=== PATIENT | male | born 1995 | race Caucasian/White ===

== ENCOUNTER 2017-04-03 06:23 | Emergency (ER) | payer MEDICAID ==
[~2017-04-03] VITALS: Ht 177.8 cm; Wt 64.5 kg
[2017-04-03 06:29] VITALS: Ht 177.8 cm; Wt 64.5 kg
[2017-04-03] MEDS ORDERED: LIDOCAINE 2% (MDV) 20 ML INJ INJ ONE (07:00)
[2017-04-03] MEDS ORDERED: IBUP-1542 PO ×2 (07:23→07:25)
--- NOTE | 2017-04-03 07:50 | ERD ---
ER Documentation Chief Complaint Date/Time DATE: 04/03/17 TIME: 07:47 Chief Complaint right big toe engrown nail x2 days HPI 21-year-old male patient with no significant past medical history presents to the ED complaining of a right great toe ingrown toenail that started about 2 days ago. Reports that it hurts to walk on his right foot because the nail is impinging on his right toe. States that he try to remove it with tweezers and a screen cutter and trimmer. Describes pain as sharp and rates it a 5 out of 10. Denies any loss of sensation, loss of range of motion, weakness, numbness or tingling, fever, chills, nausea, vomiting. Denies any injuries or trauma. ROS All systems reviewed and are negative except as per history of present illness. Medications Home Meds Active Scripts Ibuprofen* (Motrin*) 600 Mg Tab, 600 MG PO Q6, #15 TAB Prov:SEGALREGGIE Sheldon PA-C 04/03/17 Allergies Allergies: Coded Allergies: No Known Allergy (Unverified , 04/03/17) PMhx/Soc History of Surgery: No Anesthesia Reaction: No Hx Neurological Disorder: No Hx Respiratory Disorders: No Hx Cardiac Disorders: No Hx Psychiatric Problems: No Hx Miscellaneous Medical Probl: No Hx Alcohol Use: No Hx Substance Use: No Hx Tobacco Use: No Smoking Status: Never smoker Physical Exam Vitals Vital Signs Date Time Temp Pulse Resp B/P Pulse Ox O2 Delivery O2 Flow Rate FiO2 04/03/17 06:29 97.0 50 20 101/64 100 Physical Exam Const: Qos-sdr-mlpcfxolf, well-nourished. In no acute distress. Head: Atraumatic, normocephalic Eyes: Normal Conjunctiva without injection ENT: Normal external ear, nose and mouth. Neck: Full range of motion. No meningismus. Resp: Clear to auscultation bilaterally. No wheezing, rhonchi, rales, or crackles. No accessory muscle use. No retractions. Cardio: Regular rate and rhythm, no murmurs Skin: No petechiae or rashes Back: No midline tenderness. No CVA tenderness. Ext: No cyanosis, or edema. Cap refill less than 2 seconds. Distal pulses intact bilaterally. Bilateral ingrown toenail. Right great toe ingrown toenail at the medial aspect with slight erythema noted. No purulent discharge. No bleeding noted. No fluctuance or induration. Full range of motion the IP and MTP joints bilaterally. Neur: Awake and alert. Normal gait and coordination. Muscle strength 5/5. Sensation intact bilaterally. Psych: Normal Mood and Affect Results 24 hrs Current Medications Medications (Trade) Dose Ordered Sig/Devi Route PRN Reason Start Time Stop Time Status Last Admin Dose Admin Lidocaine (Xylocaine 2% (Mdv) 20 ml) 20 ml ONCE ONCE INJ 04/03/17 07:00 04/03/17 07:01 DC Procedures/MDM This is a 21-year-old male patient with no significant past medical history presents to the ED complaining of a right ingrown toenail that has a sharp pain that started 2 days ago. Patient is afebrile and nontoxic-appearing. Patient has normal vital signs. Patient gave consent to perform a removal of the medial aspect of patient's ingrown toenail at this time. It was cleaned with Betadine. 5 cc 2% lidocaine was used to provide local anesthesia. 0.5 cm of the nail with the base was were removed without any difficulty or complications. No bleeding noted. No evidence of deep space infection. Patient's extremity symptoms have stabilized while they have been evaluated in the department and are appropriate for outpatient follow up. No evidence of fractures, dislocations, compartment syndrome, neurologic injury, vascular injury, open joint, open fracture, tendon laceration, septic arthritis, osteomyelitis, DVT, foreign body, or other emergent conditions. Discharge medications: Ibuprofen Follow up with primary care physician in 1-2 days for a referral to a ramp manager. Instructed patient to return to the ED sooner for any worsening symptoms. Patient's questions were answered. Patient understood and agreed with discharge plan. Patient discharged stable. Departure Diagnosis: Primary Impression: Ingrowing nail, right great toe Condition: Stable Patient Instructions: Understanding Ingrown Toenails, Ingrown Toenail, Excised Referrals: COMMUNITY CLINICS YOU HAVE RECEIVED A MEDICAL SCREENING EXAM AND THE RESULTS INDICATE THAT YOU DO NOT HAVE A CONDITION THAT REQUIRES URGENT TREATMENT IN THE EMERGENCY DEPARTMENT. FURTHER EVALUATION AND TREATMENT OF YOUR CONDITION CAN WAIT UNTIL YOU ARE SEEN IN YOUR DOCTORS OFFICE WITHIN THE NEXT 1-2 DAYS. IT IS YOUR RESPONSIBILITY TO MAKE AN APPOINTMENT FOR FOLOW-UP CARE. IF YOU HAVE A PRIMARY DOCTOR --you should call your primary doctor and schedule an appointment IF YOU DO NOT HAVE A PRIMARY DOCTOR YOU CAN CALL OUR PHYSICIAN REFERRAL HOTLINE AT IF YOU CAN NOT AFFORD TO SEE A PHYSICIAN YOU CAN CHOSE FROM THE FOLLOWING [facility] [address] [facility] [address] [facility] [address] [facility] [address] [facility] [address]. [facility] [address] [facility]. [facility] YOU HAVE RECEIVED A MEDICAL SCREENING EXAM AND THE RESULTS INDICATE THAT YOU DO NOT HAVE A CONDITION THAT REQUIRES URGENT TREATMENT IN THE EMERGENCY DEPARTMENT. FURTHER EVALUATION AND TREATMENT OF YOUR CONDITION CAN WAIT UNTIL YOU ARE SEEN IN YOUR DOCTORS OFFICE WITHIN THE NEXT 1-2 DAYS. IT IS YOUR RESPONSIBILITY TO MAKE AN APPOINTMENT FOR FOLOW-UP CARE. IF YOU HAVE A PRIMARY DOCTOR --you should call your primary doctor and schedule and appointment IF YOU DO NOT HAVE A PRIMARY DOCTOR YOU CAN CALL OUR PHYSICIAN REFERRAL HOTLINE AT . IF YOU CAN NOT AFFORD TO SEE A PHYSICIAN YOU CAN CHOSE FROM THE FOLLOWING [facility]: [facility] [address] [place] [address] [facility] [address] [place] [address] [facility] [address] [place] [address] [facility] Additional Instructions: Call your primary care doctor TOMORROW for an appointment during the next 1-2 days for a referral to see a ramp manager. See the doctor sooner or return here if your condition worsens before your appointment time. REGGIE SEGAL PA-C April 03, 2017 07:50
== END 2017-04-03 07:30 | disposition home or self-care (01) ==
LOC: FTE 06:23
DX: L60.0 Ingrowing nail (principal)
CPT/HCPCS: 11765; Z7610

== ENCOUNTER 2017-06-12 11:44 | Emergency (ER) | payer SELFPAY ==
[~2017-06-12] VITALS: Wt 89.0 kg
[~2017-06-12 11:44] MED LIST: IBUP-1542 PO
[2017-06-12 12:35] LABS: BASOPHILS % 0.4 % (0.0-2.0); EOSINOPHILS % 1.2 % (0.0-7.0); HEMATOCRIT 39.8 % (42.0-52.0); HEMOGLOBIN 13.8 g/dl (14.0-18.0); LYMPHOCYTES # 0.7 10^3/ul (0.8-2.9); MEAN CORPUSCULAR HEMOGLOBIN 30.5 pg (29.0-33.0); MEAN CORPUSCULAR HGB CONC 34.7 g/dl (32.0-37.0); MEAN CORPUSCULAR VOLUME 88.1 fl (82.0-101.0); MEAN PLATELET VOLUME 8.7 fl (7.4-10.4); MONOCYTE # 0.2 10^3/ul (0.3-0.9); MONOCYTES % 8.6 % (0.0-11.0); NEUTROPHIL # 1.6 10^3/ul (1.6-7.5); NEUTROPHILS % 62.8 % (39.0-77.0); PLATELET COUNT 150 10^3/UL (140-415); RED BLOOD COUNT 4.52 10^6/ul (4.70-6.10); RED CELL DISTRIBUTION WIDTH 12.4 % (11.5-14.5); WHITE BLOOD COUNT 2.6 10^3/ul (4.8-10.8)
[2017-06-12 12:54] LABS: ALBUMIN 4.9 g/dl (3.3-4.9); ALBUMIN/GLOBULIN RATIO 1.75; BILIRUBIN,INDIRECT 0.7 mg/dl (0-1.1); BILIRUBIN,TOTAL 0.7 mg/dl (0.2-1.3); CALCIUM 9.7 mg/dl (8.4-10.2); CREATININE 1.14 mg/dl (0.61-1.24); POTASSIUM 5.2 mmol/L (3.5-5.1); TOTAL PROTEIN 7.7 g/dl (6.1-8.1)
--- NOTE | 2017-06-12 15:41 | ERD ---
ER Documentation Chief Complaint Date/Time DATE: 06/12/17 TIME: 15:38 Chief Complaint "MY EYES FEEL HEAVY, IM TIRED, THROAT HURTS" X 1 MONTH HPI This is a 22-year-old male presenting to the emergency department complaining of feeling like his eyes are heavy and feeling a little more tired than usual for the past month and a half. Patient states that this started whenever he stopped smoking marijuana about a month and half ago. He states that he feels as if he has throat pain that comes and goes since last month however he denies any current pain right now. Patient denies depression or anxiety. 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 Patient denies any vision changes, headaches, chest pain, shortness of breath, vision changes. He denies any fevers. Denies any weight loss weight gain ROS All systems reviewed and are negative except as per history of present illness. Medications Home Meds Active Scripts Ibuprofen* (Motrin*) 600 Mg Tab, 600 MG PO Q6, #15 TAB Prov:REGGIE SEGAL PA-C 04/03/17 Allergies Allergies: Coded Allergies: No Known Allergy (Unverified , 04/03/17) PMhx/Soc History of Surgery: No Anesthesia Reaction: No Hx Neurological Disorder: No Hx Respiratory Disorders: No Hx Cardiac Disorders: No Hx Psychiatric Problems: No Hx Miscellaneous Medical Probl: No Hx Alcohol Use: No Hx Substance Use: No Hx Tobacco Use: No Smoking Status: Never smoker Physical Exam Vitals Vital Signs Date Time Temp Pulse Resp B/P Pulse Ox O2 Delivery O2 Flow Rate FiO2 06/12/17 11:59 98.0 56 18 112/65 99 Physical Exam Const: [] Well-developed well-nourished no acute distress Head: Atraumatic Eyes: Normal Conjunctiva ENT: Normal External Ears, Nose and Mouth. Neck: Full range of motion..~ No meningismus. Resp: Clear to auscultation bilaterally Cardio: Regular rate and rhythm, no murmurs Abd: Soft, non tender, non distended. Normal bowel sounds Skin: No petechiae or rashes Back: No midline or flank tenderness Ext: No cyanosis, or edema Neur: Awake and alert Psych: Normal Mood and Affect Result Diagram: 06/12/17 1230 06/12/17 1230 Results 24 hrs Laboratory Tests Test 06/12/17 12:30 White Blood Count 2.610^3/ul Red Blood Count 4.5210^6/ul Hemoglobin 13.8g/dl Hematocrit 39.8% Mean Corpuscular Volume 88.1fl Mean Corpuscular Hemoglobin 30.5pg Mean Corpuscular Hemoglobin Concent 34.7g/dl Red Cell Distribution Width 12.4% Platelet Count 08468^3/UL Mean Platelet Volume 8.7fl Neutrophils % 62.8% Lymphocytes % 27.0% Monocytes % 8.6% Eosinophils % 1.2% Basophils % 0.4% Nucleated Red Blood Cells % 0.0/100WBC Neutrophils # 1.610^3/ul Lymphocytes # 0.710^3/ul Monocytes # 0.210^3/ul Eosinophils # 0.010^3/ul Basophils # 0.010^3/ul Nucleated Red Blood Cells # 0.010^3/ul Sodium Level 143mmol/L Potassium Level 5.2mmol/L Chloride Level 100mmol/L Carbon Dioxide Level 29mmol/L Anion Gap 19 Blood Urea Nitrogen 20mg/dl Creatinine 1.14mg/dl Glucose Level 101mg/dl Calcium Level 9.7mg/dl Total Bilirubin 0.7mg/dl Direct Bilirubin 0.00mg/dl Indirect Bilirubin 0.7mg/dl Aspartate Amino Transf (AST/SGOT) 32IU/L Alanine Aminotransferase (ALT/SGPT) 38IU/L Alkaline Phosphatase 36IU/L Total Protein 7.7g/dl Albumin 4.9g/dl Globulin 2.80g/dl Albumin/Globulin Ratio 1.75 Procedures/MDM This is a 22-year-old male presenting to the emergency department complaining of his eyes feeling heavy and feeling little more tired than usual for the past month. Patient denies any evidence of depression or anxiety. He denies any suicidal ideation or homicidal ideation. This gentleman appears well and stable. His vitals are well. He is speaking clearly ambulating well. He is appropriate to be discharged home to follow with primary care physician for further evaluation management. I have done basic labs in the ED and did not show any evidence of any acute conditions. I have patient stable for discharge home and and discussed return to the ER for any worsening symptoms he understands Departure Diagnosis: Primary Impression: Fatigue Condition: Stable Patient Instructions: Generalized Weakness, Weakness, Unk Cause Referrals: COMMUNITY CLINICS YOU HAVE RECEIVED A MEDICAL SCREENING EXAM AND THE RESULTS INDICATE THAT YOU DO NOT HAVE A CONDITION THAT REQUIRES URGENT TREATMENT IN THE EMERGENCY DEPARTMENT. FURTHER EVALUATION AND TREATMENT OF YOUR CONDITION CAN WAIT UNTIL YOU ARE SEEN IN YOUR DOCTORS OFFICE WITHIN THE NEXT 1-2 DAYS. IT IS YOUR RESPONSIBILITY TO MAKE AN APPOINTMENT FOR FOLOW-UP CARE. IF YOU HAVE A PRIMARY DOCTOR --you should call your primary doctor and schedule an appointment IF YOU DO NOT HAVE A PRIMARY DOCTOR YOU CAN CALL OUR PHYSICIAN REFERRAL HOTLINE AT IF YOU CAN NOT AFFORD TO SEE A PHYSICIAN YOU CAN CHOSE FROM THE FOLLOWING [facility] CLINICS [facility] [address] [facility] [address] [facility] [facility] [address] [facility] [address] [facility] [address] [facility]. [facility]. [address] Additional Instructions: FOLLOW UP WITH YOUR PRIMARY CARE PHYSICIAN TOMORROW.Return to this facility if you are not improving as expected. Return to this facility if you are not improving as expected. ANNA VILLAFUERTE PA-C Jun 12, 2017 15:41
== END 2017-06-12 13:15 | disposition home or self-care (01) ==
LOC: FTE 11:44
DX: R53.83 Other fatigue (principal)
CPT/HCPCS: 80053; 85025; 99283